=== PATIENT | female | born 1940 | race Caucasian/White ===

== ENCOUNTER 2017-06-22 07:59 | Day surgery (SDC) | payer MEDICARE, OTHER ==
--- NOTE | 2017-06-22 08:13 | ERNOTE ---
Abdominal HPI - General Chief Complaint: Abdominal Pain Time Seen by Provider: 06/22/17 08:08 Source: patient Exam Limitations: no limitations - Immun/Allergies/Home Medications Immunizatons: IMMUNIZATION HX Immunizations Up to Date Yes History of Influenza Vaccine Yes Hx Pneumococcal Vaccination Yes Allergies/Adverse Reactions: Allergies aspartame Allergy (Verified 06/22/17 08:08) Sulfa (Sulfonamide Antibiotics) Allergy (Verified 06/22/17 08:08) Home Medications: HOME MEDICATIONS Amlodipine Besylate/Benazepril [Amlodipine-Benazepril 5-40 mg] 1 each PO DAILY 07/22/16 [Last Taken Unknown] Carbidopa/Levodopa 25/100 [Sinemet 25/100] 1 tab PO QID 07/22/16 [Last Taken Unknown] Glucosam/Chondr/Collagn/Hyalur [Glucosamine & Chondroitin Cap] 4 each PO DAILY 07/22/16 [Last Taken Unknown] Loratadine [Claritin] 10 mg PO DAILY 07/22/16 [Last Taken Unknown] Metoprolol Succinate [Toprol Xl] 100 mg PO BID 07/22/16 [Last Taken Unknown] Carbidopa/Levodopa 25/250 [Sinemet 25/250] 1 tab PO HS 06/22/17 [Last Taken Unknown] Fluticasone Furoate [Arnuity Ellipta] 100 mcg IH DAILY 06/22/17 [Last Taken Unknown] Polyethylene Glycol 3350 [Miralax] 17 gm PO DAILY #2 bottle 06/22/17 [Last Taken Unknown] Ranitidine HCl [Zantac] 150 mg PO BID 06/22/17 [Last Taken Unknown] - History of Present Illness Narrative: Patient presents to the emergency room via ambulance for abdominal pain diffusely all over the belly that she has had since 11:00 last night. Denies any nausea or vomiting has not had a bowel movement for 12 hours Review of Systems - Review of Systems Constitutional: Present: no symptoms reported, weakness, fatigue EYE: Present: no symptoms reported ENT: Present: no symptoms reported Respiratory: Present: no symptoms reported Cardiology: Present: no symptoms reported Gastrointestinal/Abdominal: Present: nausea, vomiting, abdominal pain Genitourinary: Present: no symptoms reported Musculoskeletal: Present: no symptoms reported Skin: Present: no symptoms reported - Patient's Past Medical History Patient History - Medical: GERD, Osteoarthritis, UTI'S, Other Patient History - Cardiac/Respiratory: Hypertension Patient History - Cancer: No Hx of Cancer Patient History - Surgical Procedures: Appendectomy, Back Surgery, Cataracts, Hysterectomy Patient History - Other: None LMP (females 10-50): Menopausal - Social History Living Situations: home Abuse History: No History of abuse Psych History: No pertinent hx Smoking Status: Never smoker Alcohol Use: rarely Drug Use: none - Immunizations Immunizations Up to Date: Yes Hx Pneumococcal Vaccination: Yes History of Influenza Vaccine: Yes Physical Exam - Physical Exam General Appearance: Present: wd/wn, alert, no apparent distress Head Exam: Present: normal inspection Ears, Nose, Throat: Present: normal ENT inspection Neck: Present: normal inspection, nontender Respiratory: Present: no respiratory distress, normal breath sounds, no accessory muscle use, chest nontender, lungs clear Cardiovascular/Chest: Present: regular rate, rhythm, no murmur, normal peripheral pulses Gastrointestinal/Abdominal: Present: normal bowel sounds, soft - pt's belly is soft however she is very tender in the LLQ of the belly on direct palpation. NO rebound noted and she has centripedal obesity which makes exam difficult but not impossible. Back Exam: Present: normal inspection Extremity Exam: Present: normal inspection - patient does have restless leg syndrome and moves her legs repeatedly. Neurological Exam: Present: alert, oriented, normal mood/affect ED Progress - Results and Orders Patient's Lab Results:: I have reviewed the patient's lab results. - Vital Signs Patient's Vital Signs:: I have reviewed the patient's vital signs. Vital Signs: Vital Signs 06/22/17 08:02 Temperature 36.0 C L Pulse Rate 78 Respiratory 16 Rate Blood Pressure 184/101 O2 Sat by Pulse 94 Oximetry - X-Ray X-Ray #1 X-Ray: abdomen - CT/Ultrasound CT/Ultrasound Narrative: CT of the belly is read as small bowel obstruction with a transitional zone being in the left lower quadrant of the abdomen questionable internal hernia with closed loop results were conveyed to Dr. arcos in the operating room and he will come by and consult on the patient. - Progress/Reassessment Chief Complaint: Abdominal Pain Plan - Plan Plan: Abdominal x-ray reveals a large amount of stools belly exam is benign white count is normal we will treat this patient with an enema and see how she fairs. Departure - Departure Clinical Impression: Constipation Qualifiers: Constipation type: unspecified constipation type Qualified Code(s): K59.00 - Constipation, unspecified Disposition: Home self-care Condition: Good Instructions: Constipation, Pediatric, [id number] Prescriptions: Polyethylene Glycol 3350 [Miralax] 17 gm PO DAILY #2 bottle
[2017-06-22 08:33] LABS: Hematocrit 39.7 % (37.0-47.0); Hemoglobin 13.3 gm/dL (12.5-16.0); Mean Cell Volume 95.7 fl (78-100); Mean Corpuscular Hgb Conc 33.5 g/dl (32-36); Mean Platelet Volume 9.6 fl (6.0-9.5); Neutrophil % 87.1 % (42-75.0); Platelet Count 220 K/mm3 (150-450); Red Blood Count 4.15 M/mm3 (4.2-5.4); Red Cell Distribution Width 12.5 % (11.5-14.0); White Blood Count 9.1 K/mm3 (4.0-10.5)
[2017-06-22 08:47] LABS: Albumin * 4.1 gm/dl (3.4-5.0); Anion Gap 13.3 mmol/L (6.8-13.8); BUN/Creatinine Ratio 29.5 (9.0-21.6); Bilirubin, Total 0.8 mg/dL (0.0-1.1); Calcium * 9.4 mg/dL (7.9-10.9); Carbon Dioxide 27.8 mmol/L (24-32.6); Potassium 4.1 mmol/L (3.4-4.6); Total Protein 7.6 gm/dL (6.2-8.2)
[2017-06-22] MEDS ORDERED: MAG HYDROX/ALUMINUM HYD/SIMETH 30 ML UDC PO ONE (09:41)
[2017-06-22] MEDS ORDERED: LIDOCAINE HCL 20 ML UDC PO ONE (09:41)
[2017-06-22] MEDS ORDERED: ONDANSETRON HCL/PF 2 MG/ML VIAL IM ONE (09:43)
[2017-06-22] MEDS ORDERED: BELLADONNA ALKALOIDS/PHENOBARB 60 ML BTL PO ONE (09:44)
[2017-06-22] MEDS ORDERED: ONDANSETRON HCL/PF 2 MG/ML VIAL ONE ×2 (09:47→12:36)
[2017-06-22] MEDS ORDERED: DIATRIZOATE MEGLUMINE, SODIUM 30 ML BTL ONE (10:13)
[2017-06-22] MEDS ORDERED: DIATRIZOATE MEGLUMINE, SODIUM 30 ML BTL PO ONE (10:19)
[2017-06-22 10:30] LABS: Troponin I Less than 0.017 ng/ml (0.00-0.10)
[2017-06-22 10:39] LABS: Urine Appearance Slightly Cloudy; Urine Bilirubin Negative (NEGATIVE); Urine Color Yellow
[2017-06-22 10:40] LABS: Urine Bacteria None Seen; Urine Blood Negative /ul (NEGATIVE); Urine Ketone 5 mg/dL (NEGATIVE); Urine Nitrite Negative (NEGATIVE); Urine Protein Negative (NEGATIVE); Urine RBC None Seen /hpf (0-5); Urine Urobilinogen Normal (NORMAL); Urine WBC 0-5 /hpf (0-5); Urine pH 6.5 pH (5.0-7.0)
[2017-06-22 11:53] LABS: CKMB 1.3 ng/mL (0.0-9.0)
[2017-06-22] MEDS ORDERED: ONDANSETRON HCL/PF 2 MG/ML VIAL IV ONE (12:35)
[2017-06-22] MEDS ORDERED: HYDROmorphone HCL 1 MG/ML DISP.SYRIN IV ONE (12:36)
[2017-06-22] MEDS ORDERED: HYDROmorphone HCL 1 MG/ML DISP.SYRIN ONE (12:36)
[2017-06-22] MEDS ORDERED: LORazepam 2 MG/ML DISP.SYRIN IV ONE (13:22)
[2017-06-22] MEDS ORDERED: LORazepam 2 MG/ML DISP.SYRIN ONE (13:23)
[2017-06-22] MEDS ORDERED: NORMAL SALINE 1,000 ML IV ONE (13:52)
[2017-06-22] MEDS ORDERED: ceFAZolin SODIUM 2 GM in DEXTROSE 5 % IN WATER 50 ML IV ONE ×2 (13:54)
--- NOTE | 2017-06-22 14:13 | HP ---
Chief Complaint - Chief Complaint Date of Service: 06/22/17 Time of Service: 14:02 Chief Complaint: abdominal pain and vomiting History of Present Illness: Started having left sided and LLQ pain late yesterday. Could not get comfortable and walked the floor last night. Nausea and repeated vomiting. Took her pills today but no food. Drank contrast for CT which shows dilated small bowel loops and fluid possibly with closed loop from internal hernia. - Patient's Past Medical History Patient History - Medical: GERD, Osteoarthritis, UTI'S, Other Patient History - Cardiac/Respiratory: Hypertension Patient History - Cancer: No Hx of Cancer Patient History - Surgical Procedures: Appendectomy, Back Surgery, Cataracts, Hysterectomy, Other - her [employer] surgery was laparoscopic/ laparoscopically assisted Patient History - Other: None LMP (females 10-50): Menopausal - Social History Living Situations: home Abuse History: No History of abuse Psych History: No pertinent hx Smoking Status: Never smoker Alcohol Use: rarely Drug Use: none - Immunizations Immunizations Up to Date: Yes Hx Pneumococcal Vaccination: Yes History of Influenza Vaccine: Yes Review Of Systems (GEN) - Review of Systems Generalized/Overall Review: Present: Weakness. Absent: Chills, Fever EENTM: Present: No Symptoms Reported Respiratory: Present: No Symptoms Reported. Absent: Cough, Shortness of Breath Cardiac: Present: No Symptoms Reported. Absent: Chest Pain, Edema Abdominal: Present: Nausea, Vomiting, Abdominal Pain Genitourinary: Present: No Symptoms Reported Musculoskeletal: Present: Back Pain - chronic, Other - restless legs Neurological: Present: No Symptoms Reported Skin: Present: No Symptoms Reported Immunizations: IMMUNIZATION HX Immunizations Up to Date Yes History of Influenza Vaccine Yes Hx Pneumococcal Vaccination Yes Allergies/Adverse Reactions: Allergies Allergy/AdvReac Type Severity Reaction Status Date / Time aspartame Allergy Verified 06/22/17 08:08 Sulfa (Sulfonamide Allergy Verified 06/22/17 08:08 Antibiotics) Home Medications: HOME MEDICATIONS Amlodipine Besylate/Benazepril [Amlodipine-Benazepril 5-40 mg] 1 each PO DAILY 07/22/16 [Last Taken Unknown] Carbidopa/Levodopa 25/100 [Sinemet 25/100] 1 tab PO QID 07/22/16 [Last Taken Unknown] Glucosam/Chondr/Collagn/Hyalur [Glucosamine & Chondroitin Cap] 4 each PO DAILY 07/22/16 [Last Taken Unknown] Loratadine [Claritin] 10 mg PO DAILY 07/22/16 [Last Taken Unknown] Metoprolol Succinate [Toprol Xl] 100 mg PO BID 07/22/16 [Last Taken Unknown] Carbidopa/Levodopa 25/250 [Sinemet 25/250] 1 tab PO HS 06/22/17 [Last Taken Unknown] Fluticasone Furoate [Arnuity Ellipta] 100 mcg IH DAILY 06/22/17 [Last Taken Unknown] Ranitidine HCl [Zantac] 150 mg PO BID 06/22/17 [Last Taken Unknown] Exam - Exam Vital Signs: Vital Signs - Last Taken Temp 36.0 C L 06/22/17 08:02 Pulse 77 06/22/17 13:06 Resp 16 06/22/17 13:06 BP 154/102 06/22/17 13:06 Pulse Ox 95 06/22/17 13:06 Constitutional: Present: Alert, Oriented x3, Cooperative, Well nourished, Moderate distress ENT Exam: Present: normal ENT inspection, other - no plates Eye Exam: bilateral eye: normal inspection Neck: Present: full range of motion, normal inspection Back Exam: Present: no CVA tenderness Breasts: Present: Exam deferred Respiratory: Present: lungs clear, normal breath sounds Cardiovascular/Chest: Present: normal peripheral pulses, regular rate, rhythm - distant, no murmur Peripheral Pulses: dorsalis-pedis (R): 4+, dorsalis-pedis (L): 4+, radial (R): 4 +, radial (L): 4+ Abdomen: Present: other - tender LLQ, no percussion tenderness, soft but tender LLQ/left side, distended Extremity: Present: normal range of motion, normal inspection, no pedal edema, no calf tenderness, normal capillary refill Skin Exam: Present: normal color Neurologic: Present: 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 as tested, normal cerebellar test, no motor/ sensory deficits Appearance: Present: appropriate appearance, appropriate insight Eye contact: Present: cooperative, good eye contact, normal speech Thoughts: Present: normal thought pattern Diagnostic Studies: Abnormal Lab Results 06/22/17 06/22/17 Range/Units 08:27 08:27 RBC 4.15 L (4.2-5.4) M/mm3 MCH 32.0 H (27-31) pg MPV 9.6 H (6.0-9.5) fl Neutrophils % 87.1 H (42-75.0) % Lymphocytes % 9.1 L (20-51) % Neutrophils # 8.0 H (1.3-6.0) K/mm3 Lymphocytes # 0.8 L (1.5-3.5) k/mm3 BUN/Creatinine Ratio 29.5 H (9.0-21.6) Random Glucose 182 H (70-110) mg/dL ALT 10 L (19-67) U/L Laboratory Results WBC 9.1 K/mm3 (4.0-10.5) 06/22/17 08:27 RBC 4.15 M/mm3 (4.2-5.4) L 06/22/17 08:27 Hgb 13.3 gm/dL (12.5-16.0) 06/22/17 08:27 Hct 39.7 % (37.0-47.0) 06/22/17 08:27 MCV 95.7 fl (78-100) 06/22/17 08:27 MCH 32.0 pg (27-31) H 06/22/17 08:27 MCHC 33.5 g/dl (32-36) 06/22/17 08:27 RDW 12.5 % (11.5-14.0) 06/22/17 08:27 Plt Count 220 K/mm3 (150-450) 06/22/17 08:27 MPV 9.6 fl (6.0-9.5) H 06/22/17 08:27 Immature Gran % (Auto) 0.30 % (0.001-0.429) 06/22/17 08:27 Immature Gran # (Auto) 0.03 K/mm3 (0.000-0.0310) 06/22/17 08:27 Neutrophils % 87.1 % (42-75.0) H 06/22/17 08:27 Lymphocytes % 9.1 % (20-51) L 06/22/17 08:27 Monocytes % 3.2 % (0.0-9) 06/22/17 08:27 Eosinophils % 0.0 % (0.0-3.0) 06/22/17 08:27 Basophils % 0.3 % (0.0-1.0) 06/22/17 08:27 Nucleated RBC % 0.0 k/mm3 (0-1) 06/22/17 08:27 Neutrophils # 8.0 K/mm3 (1.3-6.0) H 06/22/17 08:27 Lymphocytes # 0.8 k/mm3 (1.5-3.5) L 06/22/17 08:27 Monocytes # 0.3 k/mm3 (0.0-1.0) 06/22/17 08:27 Eosinophils # 0.0 k/mm3 (0.0-0.7) 06/22/17 08:27 Absolute Basophils 0.0 k/mm3 (0.0-0.1) 06/22/17 08:27 Sodium 141 mmol/L (132-142) 06/22/17 08:27 Plasma Sodium 142 mmol/L (130-142) 06/22/17 08:27 Potassium 4.1 mmol/L (3.4-4.6) 06/22/17 08:27 Chloride 104 mmol/L (97-106) 06/22/17 08:27 Carbon Dioxide 27.8 mmol/L (24-32.6) 06/22/17 08:27 Anion Gap 13.3 mmol/L (6.8-13.8) 06/22/17 08:27 BUN 23 mg/dL (3-23) D 06/22/17 08:27 Creatinine 0.78 mg/dL (0.4-1.4) 06/22/17 08:27 Est GFR (Non-Af Amer) 77 mL/min (60-130) 06/22/17 08:27 BUN/Creatinine Ratio 29.5 (9.0-21.6) H 06/22/17 08:27 Random Glucose 182 mg/dL (70-110) H 06/22/17 08:27 Calcium 9.4 mg/dL (7.9-10.9) 06/22/17 08:27 Calcium Adj for Albumin 9.0 mg/dL (8.4-10.2) 06/22/17 08:27 Total Bilirubin 0.8 mg/dL (0.0-1.1) 06/22/17 08:27 AST 16 U/L (0-48) 06/22/17 08:27 ALT 10 U/L (19-67) L 06/22/17 08:27 Alkaline Phosphatase 58 U/L (50-170) 06/22/17 08:27 CK-MB (CK-2) 1.3 ng/mL (0.0-9.0) 06/22/17 08:21 Troponin I Less than 0.017 ng/ml (0.00-0.10) 06/22/17 08:21 Total Protein 7.6 gm/dL (6.2-8.2) 06/22/17 08:27 Albumin 4.1 gm/dl (3.4-5.0) 06/22/17 08:27 Urine Color Yellow 06/22/17 10:19 Urine Appearance Slightly cloudy 06/22/17 10:19 Urine pH 6.5 pH (5.0-7.0) 06/22/17 10:19 Ur Specific [place] 1.020 SP.GR. (1.005-1.010) 06/22/17 10:19 Urine Protein Negative mg/dL (NEGATIVE) 06/22/17 10:19 Urine Glucose (UA) Negative mg/dL (NEGATIVE) 06/22/17 10:19 Urine Ketones 5 mg/dL (NEGATIVE) 06/22/17 10:19 Urine Blood Negative /ul (NEGATIVE) 06/22/17 10:19 Urine Nitrate Negative (NEGATIVE) 06/22/17 10:19 Urine Bilirubin Negative mg/dl (NEGATIVE) 06/22/17 10:19 Urine Urobilinogen Normal EU/dl (NORMAL) 06/22/17 10:19 Ur Leukocyte Esterase Negative /ul (NEGATIVE) 06/22/17 10:19 Urine RBC None seen /hpf (0-5) 06/22/17 10:19 Urine WBC 0-5 /hpf (0-5) 06/22/17 10:19 Ur Epithelial Cells 0-5 /hpf (0-5) 06/22/17 10:19 Urine Bacteria None seen (NONE) 06/22/17 10:19 Urine Culture Comments No culture indicated 06/22/17 10:19 CT shows dilated small bowel with fluid, possible closed loop from internal hernia. Transition point in LLQ Assessment/Plan - Assessment/Plan (1) Small bowel obstruction due to adhesions Assessment: The bowel is embarrassed as evidenced by fluid. Discussed need for exploratory laparotomy to release the obstruction. Risks and expected course outlined. Her questions were answered to her apparent satisfaction and informed consent obtained for exploratory laparotomy. SCD's, chlorhexadine wipes, IV Ancef pre-op. Anticipate capellan cath at least 24hrs for U/O monitoring. Will start IVF's Problem: Acute
[2017-06-22] MEDS ORDERED: BACITRACIN 50,000 UNITS VIAL IR ONE (15:28)
[2017-06-22] MEDS ORDERED: MUPIROCIN 22 APPL TUBE TP ONE (15:28)
[2017-06-22] MEDS ORDERED: BUPIVACAINE HCL/EPINEPHRINE 50 ML VIAL IJ ONE (15:29)
[2017-06-22] MEDS ORDERED: RINGER'S SOLUTION,LACTATED 1,000 ML IV ONE ×4 (15:30→16:30)
--- NOTE | 2017-06-22 17:13 | OR ---
Operative Report - Dictated Report Narrative: OPERATIVE REPORT DATE OF OPERATION: 06/22/2017 PREOPERATIVE DIAGNOSIS: Small bowel obstruction POSTOPERATIVE DIAGNOSIS: Small bowel obstruction from adhesive band with internal hernia and strangulation of small intestine. OPERATION: Exploratory laparotomy with release of adhesive band. Small bowel resection (15 cm). Lysis of additional adhesive band. SURGEON: aJvi Metz MD ANESTHESIA: GenEfrain Quintanilla CRNA INDICATIONS FOR PROCEDURE: The patient is a 76-year-old female who had sudden onset of severe abdominal pain last night. She had pernicious nausea and vomiting all night. She presented to the emergency room where she was found to have distention, direct and rebound tenderness, and CT scan evidence of small bowel obstruction due to possible internal hernia. FINDINGS: Internal hernia due to adhesive band between the tip of the greater omentum and left lateral pelvis with closed loop strangulated small intestine ( 15 cm segment resected with reanastomosis). Additional adhesive band with tethered small intestine (released) NARRATIVE OF PROCEDURE: The patient was identified preoperatively. Prior to the administration of anesthetic a multidisciplinary timeout was observed. The patient was placed supine, SCDs were applied, and 2 g of intravenous Ancef administered. General endotracheal anesthetic was administered. The patient's abdomen was prepped with Betadine solution and a generous operating field outlined with 4 sterile towels. The remainder of the patient was covered with a sterile disposable drape. A low midline incision was made skirting to the right of the umbilicus. Dissection was carried through subcutaneous tissue with electrocautery until the fascia of the linea alba was encountered. This was incised. The peritoneum was then elevated and incised to allow entry into the abdomen under direct vision. There was a large amount of bloody clear peritoneal fluid. Samples obtained for culture. The abdomen was suctioned. The incision was then extended over a forefinger. Manual and visual exploration of the abdomen was then performed. Immediately apparent was collapsed viable distal small intestine. This was traced proximally and a tight adhesive band found. This was the tip of the greater omentum which was then traced into the pelvis. The band was then carefully exposed and lysed under direct vision which resulted in the release of distended/trapped small intestine. This was delivered into the incision. The majority of the intestine was viable but somewhat hyperemic, however a 15 cm stretch was severely embarrassed with at least one area of possible infarction. The bowel did not improve in appearance over 5 minutes of observation and decision was made for resection. Points were chosen proximally and distally to the embarrassed segment and transected with a LASHANDA stapling device. The intervening embarrassed mesentery was transected with a LigaSure device. The specimen was passed to the back table. The ends of transected bowel were then placed in a [id number] fashion and secured with 3-0 silk suture. Enterotomies were made in the antimesenteric borders of the staple lines and a functioning side to side anastomosis created with the LASHANDA stapler. The interior of the anastomosis was inspected and found to be hemostatic and of good caliber. The enterotomy was closed with a TA 60 stapling device. The mesenteric defect was obliterated with a running suture of 2-0 chromic. The staple line was inverted with interrupted sutures of 3-0 chromic. The area was inspected and found to be gas and liquid tight and hemostatic. Material could be freely stripped through the anastomosis and distal bowel. The abdomen was then additionally explored and the small bowel was found to be tethered by a dense adhesive band to the center of the pelvis. This was exposed and divided under direct vision. This resulted in complete liberation of the small bowel, the remainder of which appeared viable and now unobstructed. The abdomen was suctioned clean. The intestine was arranged anatomically and covered with greater omentum. After receiving a correct sponge needle and instrument count attention was turned to closing the abdomen. The peritoneum was then approximated with a running suture of 0 PDS. The fascia was approximated with interrupted sutures of antibiotic containing #1 Vicryl. Subcutaneous space was obliterated with interrupted sutures of 0 chromic and the skin was closed with tommy. The operative site was washed and dried. A dressing of Bactroban ointment, folded 4 x 4's, and Medipore tape was applied. The operative procedure was terminated at this point. The patient tolerated the anesthetic and procedure well without complication. There was no measurable blood loss. The patient received 2300 mL IV fluids. She produced 280 mL of urine. A Guevara catheter and a nasogastric tube were placed. The patient was transferred to the recovery room intubated and sedated in anticipation of transfer for ventilator management and ICU care. Reviewed and electronically signed ADDENDUM: [] RECOMMENDATION: []
[2017-06-22 17:40] VITALS: BP 128/80
== END 2017-06-22 13:55 | disposition short-term general hospital (02) ==
LOC: ER 07:59 → AMB 13:54 → SCU 17:15 → UNDOADMIN 17:15 → UNDODISIN 17:45
PROVIDERS: ATTEND Surgery
PROC: 0DN80ZZ Release Small Intestine, Open Approach (ICD-10-PCS; 2017-06-22)
PROC: 0DB80ZZ Excision of Small Intestine, Open Approach (ICD-10-PCS; principal; 2017-06-22 14:09)
DX: K56.5 Intestinal adhesions [bands] with obstruction (postinfection) (principal); K55.029 Acute infarction of small intestine, extent unspecified; K56.2 Volvulus; I10 Essential (primary) hypertension; K21.9 Gastro-esophageal reflux disease without esophagitis
CPT/HCPCS: 36415; 44005; 44120; 74020; 74177; 80053; 81001; 82553; 84484; 85025; 87070; 88307; 93005; 96372; 96374; 99284; J2405